=== PATIENT | female | born 1930 | race Caucasian/White ===

== ENCOUNTER 2017-11-04 08:03 | Emergency (ER) | payer OTHER, MEDICAID ==
[~2017-11-04] VITALS: Ht 170.2 cm; Wt 63.2 kg
[2017-11-04] MEDS ORDERED: COZAAR 50 MG TA50 M2 PO (08:11)
[2017-11-04] MEDS ORDERED: ARICEPT 5 MG TAB5 MG PO (08:11)
[2017-11-04] MEDS ORDERED: MELATONIN5 M1 PO (08:11)
[2017-11-04] MEDS ORDERED: NAMENDA 10 MG T10 MG PO (08:12)
[2017-11-04] MEDS ORDERED: VITAMIN D2000 UNI2 PO (08:12)
[2017-11-04] MEDS ORDERED: B COMPLEX1 EACH PO (08:12)
[2017-11-04] MEDS ORDERED: RANITIDINE 150150 MG PO (08:13)
[2017-11-04] MEDS ORDERED: OMEGA (08:13)
[2017-11-04] MEDS ORDERED: FATTY ACID (08:13)
[2017-11-04 10:46] VITALS: BP 139/57
== END 2017-11-04 10:46 | disposition home or self-care (01) ==
LOC: M.ERS 08:03
DX: S00.03XA Contusion of scalp, initial encounter (principal); W01.0XXA Fall on same level from slipping, tripping and stumbling without subsequent striking against object, initial encounter; Y93.89 Activity, other specified; Y92.89 Other specified places as the place of occurrence of the external cause; Y99.8 Other external cause status; Z88.8 Allergy status to other drugs, medicaments and biological substances; F03.90 Unspecified dementia, unspecified severity, without behavioral disturbance, psychotic disturbance, mood disturbance, and anxiety; G30.9 Alzheimer's disease, unspecified

== ENCOUNTER 2018-02-15 08:02 | Emergency (ER) | payer OTHER, MEDICAID ==
[~2018-02-15] VITALS: Ht 160 cm; Wt 64.9 kg
[~2018-02-15 08:02] MED LIST: ARICEPT 5 MG TAB5 MG PO; B COMPLEX1 EACH PO; COZAAR 50 MG TA50 M2 PO; FATTY ACID; MELATONIN5 M1 PO; NAMENDA 10 MG T10 MG PO; OMEGA; RANITIDINE 150150 MG PO; VITAMIN D2000 UNI2 PO
[2018-02-15] MEDS ORDERED: [UNRECOGNIZED DRUG - OTHER] PO (08:15)
[2018-02-15] MEDS ORDERED: OCUVITE ADULT1 EAC1 PO (08:15)
[2018-02-15 08:58] LABS: CALCIUM 8.7 mg/dL (8.5-10.1); CREATININE 0.7 mg/dL (0.6-1.3); POTASSIUM 3.1 mmol/L (3.5-5.1)
[2018-02-15 08:59] LABS: ALBUMIN 3.7 g/dL (3.4-5.0); TOTAL BILIRUBIN 0.5 mg/dL (<0.1-1.0); TOTAL PROTEIN 6.6 g/dL (6.4-8.2)
[2018-02-15 09:11] LABS: ABSOLUTE LYMPHOCYTES 1.5 thou/uL (0.8-5.3); ABSOLUTE MONOCYTES 0.4 thou/uL (0.0-1.2); ABSOLUTE NEUTROPHILS 2.6 thou/uL (1.6-8.1); BASOPHILS 0.6 %; EOSINOPHILS 0.6 %; HEMOGLOBIN 11.1 gm/dL (12.0-15.0); LYMPHOCYTES 33.4 %; MCH 34.3 pg (26.0-34.0); MCHC 35.6 g/dL (28.0-37.0); MCV 96.4 fL (80.0-100.0); MONOCYTES 9.1 %; MPV 7.6 fl. (7.2-11.1); NUCLEATED RBCS 0 /100WBC; PLATELET COUNT* 210 thou/uL (150-400); POLYS 56.3 %; RBC 3.22 mil/uL (4.20-5.00); RDW-CV 13.7 % (10.5-14.5); WBC 4.6 thou/uL (4.0-11.0)
[2018-02-15 09:28] LABS: URINE BILIRUBIN NEGATIVE (Negative); URINE BLOOD NEGATIVE (Negative); URINE CLARITY CLEAR; URINE COLOR YELLOW; URINE GLUCOSE-RANDOM NEGATIVE (Negative); URINE KETONES NEGATIVE (Negative); URINE LEUKOCYTES-REFLEX 1+ (Negative); URINE NITRITE-REFLEX NEGATIVE (Negative); URINE PROTEIN NEGATIVE (Negative); URINE UROBILINOGEN 0.2 E.U./dl (0.2-1.0)
[2018-02-15 09:48] LABS: CRYSTALS None Seen /LPF (None Seen); MUCUS 0-3 Light strn/LPF (None Seen); SQUAMOUS 0-3 Few /LPF (0-3)
[2018-02-15 09:49] LABS: BACTERIA-REFLEX 1-9 Few /HPF (None Seen); CASTS None Seen /LPF (None Seen); URINE RBC None Seen /HPF (0-2); URINE WBC-REFLEX 0-5 Rare /HPF (0-5)
[2018-02-15] MEDS ORDERED: KEFLEX500 M1 PO (09:54)
[2018-02-15 10:09] VITALS: BP 121/54
== END 2018-02-15 10:09 | disposition home or self-care (01) ==
LOC: M.ERS 08:02
PROVIDERS: Personal Emergency Response Attendant
DX: N39.0 Urinary tract infection, site not specified (principal); K21.9 Gastro-esophageal reflux disease without esophagitis; I10 Essential (primary) hypertension; F02.81 Dementia in other diseases classified elsewhere, unspecified severity, with behavioral disturbance; G30.9 Alzheimer's disease, unspecified; Z88.8 Allergy status to other drugs, medicaments and biological substances; W07.XXXA Fall from chair, initial encounter; Y93.89 Activity, other specified; Y92.89 Other specified places as the place of occurrence of the external cause; Y99.8 Other external cause status

== ENCOUNTER 2018-06-23 01:50 | Inpatient (IN) | payer OTHER, MEDICAID ==
[~2018-06-23] VITALS: Ht 167.6 cm; Wt 63.0 kg
[2018-06-23] VITALS (7 sets, daily range): BP systolic 111–129; BP diastolic 40–68
[~2018-06-23 01:50] MED LIST changes: +KEFLEX500 M1 PO; +OCUVITE ADULT1 EAC1 PO; +[UNRECOGNIZED DRUG - OTHER] PO
[2018-06-23 02:25] LABS: ABSOLUTE EOSINOPHILS 0.1 thou/uL (0.0-0.7); ABSOLUTE LYMPHOCYTES 1.4 thou/uL (0.8-5.3); ABSOLUTE MONOCYTES 0.3 thou/uL (0.0-1.2); ABSOLUTE NEUTROPHILS 2.4 thou/uL (1.6-8.1); BASOPHILS 0.7 %; EOSINOPHILS 1.3 %; HEMATOCRIT 31.1 % (37.0-47.0); HEMOGLOBIN 10.9 gm/dL (12.0-15.0); LYMPHOCYTES 32.5 %; MCH 34.8 pg (26.0-34.0); MCV 99.5 fL (80.0-100.0); MONOCYTES 7.9 %; MPV 7.3 fl. (7.2-11.1); NUCLEATED RBCS 0 /100WBC; PLATELET COUNT* 224 thou/uL (150-400); POLYS 57.6 %; RBC 3.13 mil/uL (4.20-5.00); RDW-CV 14.1 % (10.5-14.5); WBC 4.2 thou/uL (4.0-11.0)
[2018-06-23 02:40] LABS: ANION GAP 6 mmol/L (7-16); BUN 8 mg/dL (7-18); CALCIUM 7.9 mg/dL (8.5-10.1); CHLORIDE 104 mmol/L (98-107); CO2 29 mmol/L (21-32); CREATININE 0.7 mg/dL (0.6-1.3); GLUCOSE 91 mg/dL (70-99); POTASSIUM 3.7 mmol/L (3.5-5.1); SODIUM 139 mmol/L (136-145)
[2018-06-23 02:41] LABS: APTT 25.7 Seconds (25.0-31.3); INR 1.1; PROTIME 10.5 Seconds (9.20-11.50)
[2018-06-23 02:52] LABS: ALBUMIN 3.3 g/dL (3.4-5.0); ALKALINE PHOSPHATASE 44 U/L (46-116); NT-PRO BRAIN NAT PEPTIDE 142 pg/mL (<300); SGOT 19 U/L (15-37); SGPT 20 U/L (30-65); TOTAL BILIRUBIN 0.3 mg/dL (<0.1-1.0); TOTAL PROTEIN 6.3 g/dL (6.4-8.2); TROPONIN-I LEVEL <0.06 ng/mL (<0.06)
[2018-06-24] VITALS: BP 128/79; BP 166/55
[2018-06-24 04:00] VITALS: BP 107/44
[2018-06-24 04:57] LABS: HEMATOCRIT 30.1 % (37.0-47.0); HEMOGLOBIN 10.5 gm/dL (12.0-15.0); MCH 34.8 pg (26.0-34.0); MCHC 34.8 g/dL (28.0-37.0); MCV 99.9 fL (80.0-100.0); MPV 7.6 fl. (7.2-11.1); RBC 3.01 mil/uL (4.20-5.00); RDW-CV 14.1 % (10.5-14.5); WBC 4.1 thou/uL (4.0-11.0)
[2018-06-24 05:10] LABS: ALBUMIN 3.1 g/dL (3.4-5.0); CREATININE 0.7 mg/dL (0.6-1.3); POTASSIUM 3.3 mmol/L (3.5-5.1); TOTAL BILIRUBIN 0.3 mg/dL (<0.1-1.0); TOTAL PROTEIN 5.9 g/dL (6.4-8.2)
[2018-06-24 08:31] VITALS: BP 117/48
--- NOTE | 2018-06-24 09:37 | EKG ---
[place] [address] ELECTROCARDIOGRAM REPORT Name: CLEMENTE GONZALEZ Room: [address] ADM IN ..#: [id number] Admission: 06/23/18 Attend Phys: Ge Torres MD Discharge: Date of : 32 Report #: [id number] THIS REPORT FOR: //name// [facility] ED Test Date: 2018-06-23 Test Time: 03:55:05 Pat Name: CLEMENTE GONZALEZ Department: Room: [address] Gender: F Sr. Payroll Manager: AP : 1930 Requested By: Verónica Wetzel Order Number: [id number] Reading MD: Jose G Muniz Measurements Intervals [place] Rate: 43 P: 34 OR: 177 QRS: 53 QRSD: 104 T: 43 QT: 465 QTc: 394 Interpretive Statements Sinus bradycardia No previous ECG available for comparison Electronically Signed On 06-24-2018 9:37:22 CDT by Jose G Muniz [email or web address] <ELECTRONICALLY SIGNED> By: Jose G Muniz MD, [facility] 06/24/18 [id number] [id number] Jose G Muniz MD, FAC /EPI
--- NOTE | 2018-06-24 09:37 | EKG ---
[place] [address] ELECTROCARDIOGRAM REPORT Name: CLEMENTE GONZALEZ Room: [address] IN .R.#: [id number] Admission: 06/23/18 Attend Phys: Ge Torres MD Discharge: Date of : 32 Report #: [id number] THIS REPORT FOR: //name// [facility] ED Test Date: 2018-06-23 Test Time: 01:57:15 Pat Name: CLEMENTE GONZALEZ Department: Room: [facility] Gender: F Mothers Helper: AP : 1930 Requested By: Verónica Wetzel Order Number: [id number] MD: Jose G Muniz Measurements Intervals [place] Rate: 64 P: TN: QRS: 58 QRSD: 98 T: 23 QT: 407 QTc: 420 Interpretive Statements Atrial fibrillation Borderline low voltage, extremity leads No previous ECG available for comparison Electronically Signed On 06-24-2018 9:37:14 CDT by Jose G Muniz [email or web address] <ELECTRONICALLY SIGNED> By: Jose G Muniz MD, [facility] 06/24/18 0937 [id number] Jose G Muniz MD, [facility] /EPI
[2018-06-24 11:58] VITALS: BP 131/43
--- NOTE | 2018-06-24 14:00 | 2DMMODE ---
[place] [address] 2 D/M-MODE ECHOCARDIOGRAM Name: MAGDIELCLEMENTE HAIDER Room: [address] IN [facility]#: [id number] Admission: 06/23/18 Attend Phys: Ge Torres, Discharge: Date of : 32 Date of Service: 06/24/18 [facility] Report #: [id number] THIS REPORT FOR: //name// APPROVED REPORT Study performed: 06/24/2018 10:55:32 EXAM: Comprehensive 2D, Doppler, and color-flow Echocardiogram Patient Location: In-Patient Room #: 230 Status: routine BSA: 1.71 HR: 52 bpm BP: 117/48 mmHg Rhythm: NSR Other Information Study Quality: Good Indications Bradycardia 2D Dimensions LVEF(%): 65.71 (>50%) IVSd: 9.62 (7-11mm) LVOT Diam: 18.71 (18-24mm) LVDd: 50.57 mm PWd: 8.13 (7-11mm) Ascending Ao: 25.72 (22-36mm) LVDs: 32.21 (25-40mm) Aortic Root: 29.82 mm Etienne's LVEF: 65.71 % Volumes Left Atrial Volume (Systole) LA ESV Index: 31.40 mL/m2 Aortic Valve AoV Peak Martin.: 1.77 m/s AO Peak Gr.: 12.56 mmHg LVOT Max P.32 mmHg AO Mean Gr.: 6.39 mmHg LVOT Mean P.46 mmHg LVOT Max V: 1.15 m/s AO V2 VTI: 41.27 cm LVOT Mean V: 0.72 m/s JENNIFER (VTI): 1.96 cm2 LVOT V1 VTI: 29.36 cm Mitral Valve E/A Ratio: 1.08 [place] [address] 2 D/M-MODE ECHOCARDIOGRAM Name: MAGDIELSPENCERAMYCLEMENTE Room: [address] IN .R.#: [id number] Admission: 06/23/18 Attend Phys: Ge Torres, Discharge: Date of : 32 Date of Service: 06/24/18 1400 Report #: [id number] MV Decel. Time: 205.10 ms MV E Max Martin.: 1.03 m/s MV PHT: 59.48 ms MVA (PHT): 3.70 cm2 TDI E/Lateral E': 9.36 E/Medial E': 8.58 Medial E' Martin.: 0.12 m/s Lateral E' Martin.: 0.11 m/s Pulmonary Valve PV Peak Martin.: 0.94 m/s PV Peak Gr.: 3.51 mmHg Tricuspid Valve RAP Estimate: 5.00 mmHg TR Peak Gr.: 18.83 mmHg RVSP: 23.83 mmHg PA Pressure: 23.83 mmHg Left Ventricle The left ventricle is normal size. There is normal LV segmental wall motion. There is normal left ventricular wall thickness. Left ventricular systolic function is normal. The left ventricular ejection fraction is within the normal range. LVEF is 55-60%. The left ventricular diastolic function is normal. Right Ventricle The right ventricle is normal size. The right ventricular systolic function is normal. Atria Left atrium is moderately dilated. The right atrium size is normal. Aortic Valve Mild aortic valve sclerosis. No aortic regurgitation is present. There is no aortic valvular stenosis. Mitral Valve There is mitral annular calcification. Mild mitral regurgitation. No evidence of mitral valve stenosis. Tricuspid Valve The tricuspid valve is normal in structure. Trace tricuspid regurgitation. No pulmonary hypertension[place] [address] 2 D/M-MODE ECHOCARDIOGRAM Name: CLEMENTE GONZAELZ Room: [address] IN [facility]#: [id number] Admission: 06/23/18 Attend Phys: Ge Torres, Discharge: Date of : 32 Date of Service: 06/24/18 1400 Report #: [id number] The pulmonary valve is normal in structure. There is no pulmonic valvular regurgitation. Great Vessels The aortic root is normal in size. IVC is normal in size and collapses with >50% inspiration Pericardium There is no pericardial effusion. <Conclusion> LVEF is 55-60%. There is normal left ventricular wall thickness. There is normal LV segmental wall motion. Left atrium is moderately dilated. Mild aortic valve sclerosis. There is no aortic valvular stenosis. No aortic regurgitation is present. There is mitral annular calcification. Mild mitral regurgitation. No evidence of mitral valve stenosis. <ELECTRONICALLY SIGNED> By: Jose G Muniz MD, FACC 06/24/18 1400 1400 1400 Jose G Muniz MD, FACC /INF
[2018-06-24 16:00] VITALS: BP 121/52
[2018-06-24 16:09] LABS: eGFR IF AFRICAN AMERICAN 94 (>59)
[2018-06-24 19:50] VITALS: BP 136/46
[2018-06-25] VITALS: BP 122/50; BP 136/65
[2018-06-25 04:00] VITALS: BP 127/53
[2018-06-25 08:09] LABS: PARATHYROID HORMONE 22 pg/mL (15-65)
[2018-06-25 08:45] VITALS: BP 102/79
[2018-06-25 10:52] LABS: URINE BILIRUBIN NEGATIVE (Negative); URINE BLOOD NEGATIVE (Negative); URINE CLARITY CLEAR; URINE COLOR YELLOW; URINE GLUCOSE-RANDOM NEGATIVE (Negative); URINE KETONES NEGATIVE (Negative); URINE LEUKOCYTES-REFLEX NEGATIVE (Negative); URINE NITRITE-REFLEX NEGATIVE (Negative); URINE PROTEIN NEGATIVE (Negative); URINE UROBILINOGEN 0.2 E.U./dl (0.2-1.0)
[2018-06-25 12:36] VITALS: BP 134/68
[2018-06-25 14:51] VITALS: BP 134/68
== END 2018-06-25 16:58 | DRG 308 ==
LOC: M.ERS 01:50 → M.TBA-ER 03:25 → M.2W 03:25
PROVIDERS: Internal Medicine; Personal Emergency Response Attendant; ADMIT Internal Medicine
DX: R00.1 Bradycardia, unspecified (principal); G93.41 Metabolic encephalopathy; E44.1 Mild protein-calorie malnutrition; T44.1X5A Adverse effect of other parasympathomimetics [cholinergics], initial encounter; G30.9 Alzheimer's disease, unspecified; F02.80 Dementia in other diseases classified elsewhere, unspecified severity, without behavioral disturbance, psychotic disturbance, mood disturbance, and anxiety; K21.9 Gastro-esophageal reflux disease without esophagitis; I10 Essential (primary) hypertension; E83.51 Hypocalcemia; D64.9 Anemia, unspecified; E83.42 Hypomagnesemia; Z88.8 Allergy status to other drugs, medicaments and biological substances; Z80.52 Family history of malignant neoplasm of bladder; Z87.891 Personal history of nicotine dependence; Z79.899 Other long term (current) drug therapy; W18.39XA Other fall on same level, initial encounter; Y93.89 Activity, other specified; Y92.89 Other specified places as the place of occurrence of the external cause; Y99.8 Other external cause status; Z68.22 Body mass index [BMI] 22.0-22.9, adult